=== PATIENT | female | born 1970 | race Caucasian/White ===

== ENCOUNTER 2021-12-08 11:03 | Outpatient (REF) | payer OTHER, SELFPAY ==
--- NOTE | ~2021-12-08 | MR_ITS ---
EXAMINATION: MR CERVICAL SPINE WITHOUT CONTRAST CLINICAL INFORMATION: 51-year-old with self-reported neck and left shoulder pain and bilateral hand shaking with increasing headaches. Tingling in bilateral hands, right more than left. Anesthesia of skin. COMPARISON: None. TECHNIQUE: MRI of the cervical spine was obtained using routine sequences without contrast. FINDINGS: Alignment: There is slight lordotic reversal centered at C5-C6. There is trace anterolisthesis at C4-C5 and trace retrolisthesis at C6-C7. Craniocervical Junction/C1-C2 Articulations: Intact and aligned. Visualized Intracranial Structures: Within normal limits. Vertebral Bodies: Normal height. Disc Spaces and Endplates: Mild disc space height loss, with anterior marginal spondylosis noted at C4-C5 with moderate disc space height loss at C5-C6 and C6-C7 with disc desiccation and spondylosis at these levels. Bone Marrow: Minor type I degenerative marrow signal changes seen along the endplates anteriorly at C4-C5. Otherwise bone marrow signal intensity appears unremarkable. C2-C3: No disc herniation or canal stenosis. No significant DJD or neuroforaminal stenosis. C3-C4: No disc herniation or canal stenosis. No significant DJD or neuroforaminal stenosis. C4-C5: Mild broad-based disc osteophyte complex noted, with slight flattening of the dural sac without cord impingement or canal stenosis. Minor uncinate process spurring noted on the left with slight left-sided neural foraminal narrowing. C5-C6: Broad-based disc osteophyte complex noted, with moderate flattening of the ventral dural sac without cord impingement or significant spinal canal stenosis. Bilateral uncovertebral spurring is noted, left more than right with mild right and moderate left-sided neural foraminal stenosis. C6-C7: Broad-based disc protrusion noted with mild flattening of the ventral dural sac and left paramedian disc osteophyte complex also noted without cord impingement or spinal canal stenosis. There is uncovertebral spurring predominately on the left with moderate left-sided neural foraminal stenosis. C7-T1: No disc herniation or canal stenosis. Mild facet arthropathy on the left noted. No neural foraminal stenosis. T1-T2: No disc herniation or canal stenosis. No facet arthrosis or neuroforaminal stenosis. Spinal Cord: The cervical and visualized upper thoracic spinal cord is normal in morphology, caliber and signal intensity throughout. Extracranial Soft Tissues: There is some mucosal thickening in the maxillary sinuses bilaterally. There is a 2.0 x 0.7 cm right suprahyoid IJ chain lymph node which appears mildly enlarged of indeterminate significance. Otherwise, the visualized extracranial head/neck soft tissues are unremarkable within the limitations of the study. MR/MR cervical spine wo con IMPRESSION: 1. Mild lordotic reversal centered at C5-C6 with trace anterolisthesis at C4-C5 with discogenic degenerative changes between C4-C5 and C6-C7 inclusive with associated mild degrees of spondylosis. Mild broad-based disc osteophyte complexes at C4-C5 and C5-C6, with broad-based disc protrusion and left paramedian disc osteophyte complex at C6-C7 without spinal cord impingement or significant spinal canal stenosis. 2. Multilevel DJD primarily involving the uncovertebral joints on the left with moderate left-sided neural foraminal stenosis at C5-C6 and C6-C7. 3. A single mildly prominent right suprahyoid IJ chain lymph node is noted. Follow-up as per clinical indications. 4. Bilateral maxillary sinus mucosal thickening.
== END 2021-12-08 11:04 | disposition home or self-care (01) ==
LOC: HO.MRI 11:03
PROVIDERS: Visit Provider Nurse Practitioner Family
DX: M54.2 Cervicalgia (principal); R20.0 Anesthesia of skin; R20.2 Paresthesia of skin
CPT/HCPCS: 72141

== ENCOUNTER 2022-03-26 15:27 | Outpatient (REF) | payer OTHER, SELFPAY ==
--- NOTE | ~2022-03-26 | MM_ITS ---
EXAMINATION: MM SCREENING DIGITAL BREAST TOMOSYNTHESIS, BILATERAL CLINICAL INFORMATION: Screening. Asymptomatic. Prior left breast cancer status post lumpectomy. Radiation completed September,. COMPARISON: Outside breast imaging from [facility]: mammography 05/14/2019, 05/09/2018, 06/11/2017, 01/16/2018 [id number], ultrasound right breast 03/16/2019. TECHNIQUE: Digital breast tomosynthesis is performed in both the craniocaudal and mediolateral oblique views along with computer-aided detection (CAD). Synthesized 2D images are generated from the tomosynthesis. Additional bilateral MLO views are provided. FINDINGS: There are scattered areas of fibroglandular density (ACR BI-RADS breast composition Category b). Parenchymal pattern is similar to prior outside studies. Left breast has post therapy changes with stable scarring and surgical clips posterior 12:00 position. There is a chronic 0.5 cm circumscribed nodule central left breast similar to 2018. The right breast has stable fibrocystic changes mid posterior upper outer quadrant with simple cysts noted on outside ultrasound. There is a biopsy clip marker central lower inner right breast. There is no developing density or interval significant mass or architectural abnormality or abnormal calcifications. No significant changes. MM/MM tomosynthesis screening BI IMPRESSION: -No mammographic evidence of malignancy. -No significant changes from prior outside studies. -Post therapy changes left breast. ASSESSMENT: BI-RADS 2: Benign RECOMMENDATION: Routine annual mammography screening. This patient's information was entered into a reminder system with a target due date for their next mammogram.
== END 2022-03-26 15:28 | disposition home or self-care (01) ==
LOC: HO.MAMMO 15:27
PROVIDERS: PCP Student in an Organized Health Care Education/Training Program; Visit Provider Family Medicine
DX: Z12.31 Encounter for screening mammogram for malignant neoplasm of breast (principal)
CPT/HCPCS: 77063; 77067

== ENCOUNTER 2022-08-03 14:00 | Outpatient (RCR) | payer OTHER, SELFPAY ==
[2022-05-26 10:13] VITALS: BP 118/69
== END 2022-09-07 14:10 | disposition home or self-care (01) ==
LOC: HO.PT 14:00
PROVIDERS: Visit Provider Nurse Practitioner Primary Care
DX: S13.4XXD Sprain of ligaments of cervical spine, subsequent encounter (principal)
CPT/HCPCS: 97012; 97110; 97112; 97140; 97162

== ENCOUNTER 2022-08-26 11:41 | Outpatient (REF) | payer OTHER, SELFPAY ==
[2022-08-26 11:46] LABS: MANUAL DIFF FLAG NO
[2022-08-26 12:48] LABS: Basophils Absolute Auto 0.1 X10*3/uL (0.0-0.2); Basophils Percent Auto 1.4 % (0-2); Eosinophils Absolute Auto 0.4 X10*3/uL (0.0-0.4); Eosinophils Percent Auto 7.2 % (0-4); Hematocrit 40.7 % (37.0-47.0); Hemoglobin 13.5 g/dl (12.0-16.0); Imm Gran Abs Auto 0.02 X10*3/uL (0.00-0.03); Imm Gran Pct Auto 0.3 % (0.0-0.4); Lymphocytes Absolute Auto 1.8 X10*3/uL (1.2-4.9); Lymphocytes Percent Auto 32.1 % (20-40); Mean Corpuscular HGB Conc 33.2 g/dl (31.0-35.0); Mean Corpuscular Hemoglobin 29.3 pg (27.0-33.0); Mean Corpuscular Volume 88.3 fL (80.0-98.0); Mean Platelet Volume 9.9 fL (9.4-12.3); Monocytes Absolute Auto 0.5 X10*3/uL (0.1-1.2); Monocytes Percent Auto 8.4 % (2-11); Neutrophils Absolute Auto 2.9 x10*3/uL (2.0-8.3); Neutrophils Percent Auto 50.6 % (45-73); Platelet Count 321 X10*3/uL (160-400); Red Blood Count 4.61 X10*6/uL (4.20-5.50); Red Cell Distribution Width 12.6 % (11.0-16.0); White Blood Count 5.7 X10*3/uL (4.8-10.8)
== END 2022-08-26 11:42 | disposition home or self-care (01) ==
LOC: HO.LAB 11:41
PROVIDERS: PCP Student in an Organized Health Care Education/Training Program; Visit Provider Student in an Organized Health Care Education/Training Program
DX: R63.5 Abnormal weight gain (principal)
CPT/HCPCS: 36415; 85025

== ENCOUNTER 2023-01-26 07:24 | Outpatient (AMB) | payer OTHER, SELFPAY ==
--- NOTE | 2023-01-26 07:35 | MHC.OFFVIS ---
Intake Vital Signs 01/26/23 07:37 Height 5 ft 6 in Weight 187 lb 6 oz BMI 30.2 BP 114/70 Blood Pressure Location Lt brachial Position Sitting Pulse 69 Intake Visit Reasons: Colonoscopy Screening Intake Note: Patient new consult for 1st pre colonoscopy screening. Patient denies any GI issues. Sustainability Communicator Required: No Accompanied by: Self / Same As Patient Allergies No Known Allergies Allergy (Verified 01/26/23 07:34) Medication List - Last Reconciled 01/26/23 by Chanell Motta PA-C albuterol sulfate 90 mcg/actuation (Ventolin HFA) 2 puffs inhalation Q4H PRN bupropion HCl 300 mg PO QAM ibuprofen (Advil) 200 mg PO Q6H PRN loratadine (Claritin) 10 mg PO DAILY lorazepam 0.5 mg PO BEDTIME PRN HPI HPI Comments History of Present Illness Details A 52 y/o female - family history multiple colon polyps last colon CDH- poilyps due surviellance- Appetite good -dysphagia- to solids- no issues with liquids- Bowels ok- Breast Ca 2018 Seasonal allergies only time she needs inhaler No nausea, vomiting, hematemesis, hematochezia fever chills PFSH Medical History (Updated 01/26/23 @ 10:45 by Chanell Motta PA-C) Cervical spondylosis Neck pain Sleep disorder Generalized headaches Snoring GERD (gastroesophageal reflux disease) Asthma Breast cancer Depression Carpal tunnel syndrome on both sides Carpal boss of right wrist Carpal boss of left wrist Ovary absent Surgical History History of lumpectomy of left breast Family History Father Cancer Social History Household Members: Spouse and Children Housing: House Alcohol intake: unknown Patient Tobacco Use Status: Never used Tobacco Review of Systems Const All systems reviewed & are unremarkable except as noted in HPI and below ENT Reports dysphagia Card Denies chest pain and Denies dyspnea Resp Denies dyspnea GI Denies abdominal pain and Reports dysphagia Physical Exam Vital Signs: Last Vital Signs Pulse 69 01/26/23 07:37 BP 114/70 01/26/23 07:37 BMI result Body Mass Index 30.2 Const General: cooperative, healthy appearing, comfortable and no acute distress Orientation/consciousness: patient oriented x3 Limitations: no limitations Eyes Sclerae: sclerae normal Resp Effort & Inspection: normal respiratory effort and able to speak in complete sentences Auscultation: clear to auscultation bilaterally, no rales, no rhonchi and no wheezes Cardio Rhythm: regular rhythm Heart sounds: S1 normal heart sound present and S2 normal heart sound present GI Palpation (GI): Soft to palpation and nontender Auscultation: normal bowel sounds Skin General skin exam: no rashes or lesions noted Neuro General: patient oriented x3 Extrem General: Yes full ROM Psych Appearance: grossly normal and well kempt Mental Status: mental status grossly normal Speech and movement: Normal speech and movement present and Clear speech present Affect: normal affect Attitude: cooperative Thought process: Normal thought process present Thought content: Normal thought content present Insight: Good insight present (Psych) Judgement: Good judgement present (Psych) Assessment & Plan Assessment & Plan (1) History of adenomatous polyp of colon: Comment: Personal history colon polyps, mother and father history colon polyps Code(s): Z86.010 - Personal history of colonic polyps Plan: Polyp surveillance colonoscopy (2) Dysphagia: Comment: r/o stricture, esophagitis, other endoscopic causes to account for symptoms Code(s): R13.10 - Dysphagia, unspecified Plan: EGD Chew well Eat slowly Will get upper GI series in the interim Plan EGD/ colon UGI series - pt to call for results Orders: Orders FL upper GI series Today R13.10 - Dysphagia, unspecified EGD/[place] Combo - GI Use Only Today R13.10 - Dysphagia, unspecified, Z86.010 - Personal history of colonic polyps Medications: New bisacodyl (Dulcolax (bisacodyl)) Day before procedure, prep day Take 4 tablets by mouth upon awakening followed by large glass of water 20 mg (4 x 5 mg) PO ONCE 1 day 4 tabs 0RF colonoscopy prep Z12.11 - Encounter for screening for malignant neoplasm of colon polyethylene glycol 3350 (Miralax) Take as directed by mouth the day before your procedure. 238 grams PO ONCE 1 day PRN 238 grams 0RF laxative effect Patient Instructions: UGI seres-she will call for results EGD /colon MG prep-literature given Eat slowly Chew food well Call with any questions or concerns Coding Level of Care Code New Pt Level 3 (19985) Diagnoses History of adenomatous polyp of colon Z86.010 Dysphagia R13.10 Time Spent (min) 30
[2023-01-26 07:37] VITALS: BP 114/70; PULSE 69; BMI 30.2
== END 2023-01-26 09:00 | disposition home or self-care (01) ==
PROVIDERS: PCP Student in an Organized Health Care Education/Training Program; Visit Provider Physician Assistant
DX: Z86.010 Personal history of colon polyps (principal); Z12.11 Encounter for screening for malignant neoplasm of colon; R13.10 Dysphagia, unspecified
CPT/HCPCS: S0285

== ENCOUNTER → 2023-01-26 07:24 | Outpatient (BNVA) | payer OTHER, SELFPAY | PROVIDERS: PCP Student in an Organized Health Care Education/Training Program; Visit Provider Physician Assistant ==

== ENCOUNTER 2023-04-14 08:20 | Outpatient (REF) | payer OTHER, SELFPAY ==
--- NOTE | ~2023-04-14 | FL_ITS ---
EXAMINATION: FL BARIUM SWALLOW CLINICAL INFORMATION: Dysphagia COMPARISON: None TECHNIQUE: Fluoroscopic air contrast upper GI examination was performed utilizing standard techniques with thin and thick barium and effervescent granules. Numerous spot images were obtained. FINDINGS: Surgical clips are present in the left chest, consistent with prior history of lumpectomy. Lateral cine images of the oropharynx and hypopharynx demonstrate normal swallow mechanism with normal epiglottic inversion and soft palate elevation. Trace laryngeal penetration is seen with the thick barium. No tracheal penetration, glottic or subglottic aspiration identified. Tiny amount of nasopharyngeal reflux noted. Hypopharyngeal structures appear normal without evidence of mass or diverticulum. There was no significant cricopharyngeal achalasia. Dual and single contrast images of the esophagus demonstrate normal caliber, contour, and mucosal pattern. No evidence of stricture, mass, or ulcerations identified. Primary esophageal peristalsis was normal. There is some mild disorganized tertiary contractions noted in the mid and distal esophagus There is a small to moderate moderate-sized type I hiatus hernia. No significant gastroesophageal reflux was seen during the course of the examination and on reflux views. FLUOROSCOPY TIME: 3 minutes 31 seconds Number of Spot Images: 8 Number of Cine: 5 DOSE AREA PRODUCT: 1310 uGy-m2 (microgray-meter squared) FL/FL barium swallow IMPRESSION: 1. Trace laryngeal penetration with thick barium 2. Mild esophageal dysmotility 3. Small to moderate sized type I hiatus hernia. This procedure was performed by Cory Gallardo PA-C, and supervised by Dr. Dale
== END 2023-04-14 08:21 | disposition home or self-care (01) ==
LOC: HO.XRAY 08:20
PROVIDERS: PCP Student in an Organized Health Care Education/Training Program; Visit Provider Physician Assistant
DX: R13.10 Dysphagia, unspecified (principal)
CPT/HCPCS: 74220

== ENCOUNTER → 2023-04-14 08:22 | Outpatient (BNV) | payer OTHER, SELFPAY | PROVIDERS: PCP Student in an Organized Health Care Education/Training Program; Visit Provider Radiology Diagnostic Radiology | DX: R13.10 Dysphagia, unspecified (principal) | CPT/HCPCS: 74221 ==

== ENCOUNTER 2023-05-20 15:18 | Outpatient (REF) | payer OTHER, SELFPAY ==
--- NOTE | ~2023-05-20 | US_ITS ---
EXAMINATION: US EXTRACRANIAL CAROTID DUPLEX, BILATERAL CLINICAL INFORMATION: Stenosis COMPARISON: None available. TECHNIQUE: Real-time ultrasound and Doppler techniques (integrating B-mode 2-D vascular images, Doppler spectral analysis and color-flow Doppler imaging) were utilized to interrogate the extracranial carotid arteries, the vertebral arteries and proximal subclavian arteries bilaterally. The degree of stenosis is determined by criteria similar to NASCET. FINDINGS: Right Side: 1. There is no atherosclerotic plaque seen in the bifurcation/proximal ICA region. 2. The common carotid artery PSV proximally is 95 cm/s and distally 107 cm/s. 3. The proximal internal carotid artery velocities are 94 cm/s systolic and 29 cm/s diastolic. 4. The proximal external carotid artery PSV is 112 cm/s. 5. The vertebral artery shows antegrade flow. 6. The subclavian artery waveforms are normal. Left Side: 1. There is no atherosclerotic plaque seen in the bifurcation/proximal ICA region. 2. The common carotid artery PSV proximally is 139 cm/s and distally 109 cm/s. 3. The proximal internal carotid artery velocities are 76 cm/s systolic and 33 cm/s diastolic. 4. The proximal external carotid artery PSV is 95 cm/s. 5. The vertebral artery shows antegrade flow. 6. The subclavian artery waveforms are normal. US/US carotid duplex BI IMPRESSION: 1. RIGHT: Normal right internal carotid artery without atherosclerotic plaque or hemodynamically significant stenosis. 2. LEFT: Normal left internal carotid artery without atherosclerotic plaque or hemodynamically significant stenosis.
== END 2023-05-20 15:19 | disposition home or self-care (01) ==
LOC: HO.US 15:18
PROVIDERS: PCP Student in an Organized Health Care Education/Training Program; Visit Provider Student in an Organized Health Care Education/Training Program
DX: I65.23 Occlusion and stenosis of bilateral carotid arteries (principal)
CPT/HCPCS: 93880

== ENCOUNTER 2023-06-09 07:38 | Outpatient (REF) | payer OTHER, SELFPAY ==
--- NOTE | ~2023-06-09 | MM_ITS ---
EXAMINATION: MM SCREENING DIGITAL BREAST TOMOSYNTHESIS, BILATERAL CLINICAL INFORMATION: Screening. Asymptomatic. Left lumpectomy 12:00 axis for breast CA in 2018. Radiation completed September,. COMPARISON: Mammography: 03/26/2022, Outside breast imaging from [facility]: mammography 05/14/2019, 05/09/2018, 06/11/2017, 01/16/2018, 05/05/2017, ultrasound right breast 03/16/2019. TECHNIQUE: Digital breast tomosynthesis is performed in both the craniocaudal and mediolateral oblique views along with computer-aided detection (CAD). Synthesized 2D images are generated from the tomosynthesis. FINDINGS: The breasts are heterogeneously dense, which may obscure small masses (ACR BI-RADS breast composition Category c). There are unchanged post therapy changes in the left breast 12:00 axis with posterior surgical clips and scarring, and mild trabecular prominence. There is a similar 0.5 cm circumscribed nodule central left breast similar to 2018. The right breast is stable fibrocystic changes with a biopsy clip marker within a density in the lower inner right breast. In the upper outer right breast, middle one third, there is a circumscribed mass present, shown to represent a cyst. This was seen on prior ultrasound. No developing density, developing architectural abnormality or abnormal suspicious calcifications identified. No skin or axillary abnormalities. MM/MM tomosynthesis screening BI IMPRESSION: -No mammographic evidence of malignancy. -Stable post therapy changes left breast. ASSESSMENT: BI-RADS BI-RADS 2 - Benign Findings RECOMMENDATION: Routine annual mammography screening. 1 year F/U This examination should not preclude the clinical evaluation of a suspicious palpable abnormality. This patient's information was entered into a reminder system with a target due date for their next mammogram.
== END 2023-06-09 07:39 | disposition home or self-care (01) ==
LOC: HO.MAMMO 07:38
PROVIDERS: PCP Student in an Organized Health Care Education/Training Program; Visit Provider Student in an Organized Health Care Education/Training Program
DX: Z12.31 Encounter for screening mammogram for malignant neoplasm of breast (principal)
CPT/HCPCS: 77063; 77067

== ENCOUNTER → 2023-06-09 07:45 | Outpatient (BNV) | payer OTHER, SELFPAY | PROVIDERS: PCP Student in an Organized Health Care Education/Training Program; Visit Provider Radiology Diagnostic Radiology | DX: Z12.31 Encounter for screening mammogram for malignant neoplasm of breast (principal) | CPT/HCPCS: 77063; 77067 ==

== ENCOUNTER 2023-06-20 09:27 | Day surgery (SDC) | payer OTHER, SELFPAY ==
--- NOTE | 2023-06-17 10:42 | HO.ANESPROP2 ---
HPI - Anesthesia Eval Consult details Narrative: 52yo F for Upper Endoscopy and Colonoscopy ON LICENSE OF [facility] Active Problems Active Problems: All Active Problems (Updated 01/26/23 @ 10:45 by Chanell Motta PA-C) History of adenomatous polyp of colon (Acute) Dysphagia (Acute) Neck pain (Acute) Cervical spondylosis (Acute) Tremors of nervous system (Acute) Sleep talking (Acute) Neck pain (Acute) Numbness and tingling in right hand (Acute) Sleep disorder (Acute) Generalized headaches (Acute) Snoring (Acute) GERD (gastroesophageal reflux disease) (Acute) Depression (Acute) Past Medical History Medical History (Updated 01/26/23 @ 10:45 by Chanell Motta PA-C) Cervical spondylosis Neck pain Sleep disorder Generalized headaches Snoring GERD (gastroesophageal reflux disease) Asthma Breast cancer Depression Carpal tunnel syndrome on both sides Carpal boss of right wrist Carpal boss of left wrist Ovary absent Family History Family History Father Cancer Surgical History Surgical History History of lumpectomy of left breast Social History Social History Household Members: Spouse and Children Housing: House Alcohol intake: unknown Patient Tobacco Use Status: Never used Tobacco Meds Allergies Allergy/AdvReac Type Severity Reaction Status Date / Time No Known Allergies Allergy Verified 01/26/23 07:34 Home Medications Medication Instructions Recorded Confirmed Last Taken Type bupropion HCl 300 mg 24 hr tablet, 300 mg PO QAM 11/06/21 01/21/22 Unknown History extended release ibuprofen 200 mg tablet (Advil) 200 mg PO Q6H PRN 11/06/21 01/21/22 Unknown History loratadine 10 mg tablet (Claritin) 10 mg PO DAILY 11/06/21 01/21/22 Unknown History lorazepam 0.5 mg tablet 0.5 mg PO BEDTIME PRN 11/06/21 01/21/22 Unknown History albuterol sulfate 90 mcg/actuation 2 puff inhalation Q4H PRN wheezing 01/26/23 Unknown History aerosol inhaler (Ventolin HFA) Assessment and Plan Assessment Anesthesia Assessment: Chart Reviewed
--- NOTE | 2023-06-20 09:38 | MHC.SHP ---
Pre-Procedural Eval Section A - 24 Hr Update-Section A only Date of Service: 06/20/23 The patient is an INPATIENT: No The patient has been examined within 24 hours of the surgical procedure. The History & Physical has been completed within 30 days and I have reviewed it.: No Section B - Complete if H&P > 30 days Chief Complaint: Surveillance of colon polyps, dysphagia Relevant Social History: None Present Medications: see Short Stay Collaborative assessment Medical History: Significant History (Cervical spondylosis Neck pain Sleep disorder Generalized headaches Snoring GERD (gastroesophageal reflux disease) Asthma Breast cancer Depression Carpal tunnel syndrome on both sides Carpal boss of right wrist Carpal boss of left wrist Ovary absent) History of Previous Operations: Relevant previous surgery/procedure and date(s) (History of lumpectomy of left breast, history of colonoscopy) Allergies: Allergies Allergy/AdvReac Type Severity Reaction Status Date / Time No Known Allergies Allergy Verified 01/26/23 07:34 Review of Systems Sugical H&P ROS: Negative: Constitution, Cardiovascular, Respiratory and Gastrointestinal Exam Surgical H&P Exam: Normal: Heart, Normal: Lungs, Normal: Extremities and Normal: Abdomen Plan Diagnosis/Plan: Unchanged I have reviewed the history and physical and performed a pertinent physical examination on my patient. No changes have occurred unless specified. Time Spent With Patient Time: Total time managing care of this patient today ____ minutes.
[2023-06-20 09:48] VITALS: BMI 30.2
[2023-06-20 09:52] VITALS: BMI 30.2
--- NOTE | 2023-06-20 09:53 | P.CONAN_ITS ---
[facility] Active Problems Active Problems: All Active Problems (Updated 01/26/23 @ 10:45 by Chanell Motta PA-C) History of adenomatous polyp of colon (Acute) Dysphagia (Acute) Neck pain (Acute) Cervical spondylosis (Acute) Tremors of nervous system (Acute) Sleep talking (Acute) Neck pain (Acute) Numbness and tingling in right hand (Acute) Sleep disorder (Acute) Generalized headaches (Acute) Snoring (Acute) GERD (gastroesophageal reflux disease) (Acute) Depression (Acute) Past Medical History Medical History Cervical spondylosis Neck pain Sleep disorder Generalized headaches Snoring GERD (gastroesophageal reflux disease) Asthma Breast cancer Depression Carpal tunnel syndrome on both sides Carpal boss of right wrist Carpal boss of left wrist Ovary absent Functional capacity: independent ambulation Patient : No Family History Family History Father Cancer Family history of problems with anesthesia: No Surgical History Surgical History History of lumpectomy of left breast History of Problems with Anesthesia: No Social History Social History Household Members: Spouse and Children Housing: House Alcohol intake: unknown Patient Tobacco Use Status: Never used Tobacco Use of substances other than those prescribed or required for medical reasons: No Are you DNR?: No Advance Directives: No Advance Directives Information Provided: Yes Patient : No (Menopause) Meds Allergies Allergy/AdvReac Type Severity Reaction Status Date / Time No Known Allergies Allergy Verified 01/26/23 07:34 Active Medications: Current Medications Albuterol Sulfate (Albuterol Sulfate (0.083%) 2.5 Mg/3 Ml Vial.Neb) 2.5 mg I NHALE ONCE PRN PRN Reason: Shortness of Breath/Wheezing Lactated Ringer's (Lr) 1,000 mls @ 100 mls/hr IVCONT .Q10H [facility] Home Medications Medication Instructions Recorded Confirmed Last Taken Type bupropion HCl 300 mg 24 hr tablet, 300 mg PO QAM 11/06/21 01/21/22 Unknown History extended release ibuprofen 200 mg tablet (Advil) 200 mg PO Q6H PRN 11/06/21 01/21/22 Unknown History loratadine 10 mg tablet (Claritin) 10 mg PO DAILY 11/06/21 01/21/22 Unknown History lorazepam 0.5 mg tablet 0.5 mg PO BEDTIME PRN 11/06/21 01/21/22 Unknown History albuterol sulfate 90 mcg/actuation 2 puff inhalation Q4H PRN wheezing 01/26/23 Unknown History aerosol inhaler (Ventolin HFA) Exam Height,Weight and Vital Signs: Height 5 ft 6 in Weight 84.878 kg Airway Mallampati Class: II TM Dist: >3cm Neck ROM: Full Heart: RRR Lungs: CTA Assessment and Plan Assessment Anesthesia Assessment: Anesthesia Plan Discussed Final Anesthetic Review Family History of Problems with Anesthesia: No History of Problems with Anesthesia: No ASA Class: II Final Preanesthetic Review: Meds/Allgs Chart Reviewed, Consent Obtained/Reviewed and Anes Risks/Benef Reviewed Patient Risk: Low Procedure Risk: Low Anesthetic Plan Anesthetic Plan: MAC: Disposition: Standard PACU
[2023-06-20 09:59] VITALS: BP 130/80; PULSE 79; RESP 16; TEMP 36.4; O2SAT 98
[2023-06-20] MEDS: Lactated Ringers 1,000 ML 100 ML IVCONT (10:10)
--- NOTE | 2023-06-20 10:34 | W.PM.OPN ---
Operative Note Operative Note Date of Service: 06/20/23 Narrative: FLEXIBLE TRANSORAL UPPER GASTROINTESTINAL ENDOSCOPY WITH BIOPSIES AND ESOPHAGEAL BALLOON DILATION AND COLONOSCOPY TILL CECUM WITH BIOPSIES AND SNARE POLYPECTOMY Pre-op diagnosis: Surveillance for colon polyps, GERD, dysphagia (x 1 year) Post-op diagnosis: Hiatal hernia, Esophagitis, Schatzki's ring, Gastritis, Gastric polyps, Colon Polyps, Diverticulosis, hemorrhoids ?E: TRANSVERSE COLON POLYP ?F: ASCENDING COLON POLYP BXS ?G: SIGMOID COLON POLYPS X 2. Endoscopist:? Trini Marcos MD Anesthesia:?MAC UPPER ENDOSCOPY Consent: Indications for the procedure and potential complications of bleeding, perforation, reaction to medications and missed diagnosis were discussed with the patient and informed consent was obtained. Instrument: Olympus GIF H 190 mid size upper endoscope Monitoring: Vital signs and clinical assessment, continuous EKG monitoring, Pulse oximetry, Carbon Dioxide monitoring and blood pressure monitoring were done throughout the procedure. Procedure: The patient was placed in the left lateral decubitis position and pre-procedure medications were administered and a bite block was placed. The endoscope was inserted into the mouth and advanced under direct vision to the third part of duodenum. A careful inspection was made as the upper endoscope was withdrawn including a retroflexed examination of the proximal stomach; Findings and interventions are described below. Findings: Larynx: Normal Esophagus: GE junction at 34 cms, small hiatal hernia 34 to 36 cms. A partially obstructing Schatzki's ring and edematous folds at the GE junction with a 1 cms erosion. Esophageal balloon dilation of Schatzki's ring was performed with a 20 mm (60 F) CRE balloon x 60 seconds. Biopsies were obtained from the proximal esophagus and GE junction. Stomach: Multiple 4-6 mm benign appearing polyps in the gastric body and fundus - biopsied. Mild gastric antral erythema - biopsies were obtained. Grade 3 flap valve on retroflexed examination of the cardia. Duodenum: Normal bulb and descending duodenum Intervention: Biopsies and esophageal balloon dilation as noted above COLONOSCOPY PROCEDURE NOTE Instrument: Olympus PCF H 190 L variable stiffness pediatric colonoscope Monitoring: Vital signs and clinical assessment, intermittent blood pressure monitoring, continuous EKG monitoring, Pulse oximetry and Carbon Dioxide monitoring were done throughout the procedure. Please see anesthesia flowsheet. Colon withdrawl time was 17 minutes. Procedure: The patient was placed in the left lateral decubitis position and pre-procedure medications were administered. After a digital rectal examination of the ano-rectum, the video colonoscope was inserted into the rectum and advanced through the colon to the cecum. The colonoscope was slowly withdrawn in a retrograde panoramic fashion and the colon mucosa was carefully examined including a retroflexed view of the rectum. Findings and interventions are described below. Procedure Difficulty: without difficulty Findings: Terminal Ileum: Not evaluated Cecum: Normal Ascending Colon: A 4-5 mm diminutive appearing polyp - removed with a cold biopsy Transverse Colon: A 7-8 mm sessile polyp - removed with a cold snare Descending Colon: Moderate diverticulosis Sigmoid Colon: A 7- 8 mm sessile polyp - removed with a cold snare. A 3-4 mm sessile polyp - removed with a cold biopsy. Moderate diverticulosis Rectum: Normal Ano-rectum: Moderate internal hemorrhoids Colon preparation: Good after copious irrigation. [place] Bowel Preparation Scale Right colon; 2 Transverse colon: 2 Left colon; 2 (0 = Unprepared colon segment with mucosa not seen due to solid stool that cannot be cleared. 1 = Portion of mucosa of the colon segment seen, but other areas of the colon segment not well seen due to staining, residual stool and/or opaque liquid. 2 = Minor amount of residual staining, small fragments of stool and/or opaque liquid, but mucosa of colon segment seen well. 3 = Entire mucosa of colon segment seen well with no residual staining, small fragments of stool or opaque liquid) Impression and Post Procedure Diagnosis: Endoscopy Findings: ESOPHAGUS: Small hiatal hernia 34 to 36 cms. A partially obstructing Schatzki's ring and edematous folds at the GE junction with a 1 cms erosion. Esophageal balloon dilation of Schatzki's ring was performed with a 20 mm (60 F) CRE balloon x 60 seconds. Biopsies were obtained from the proximal esophagus and GE junction. STOMACH: Gastritis and multiple gastric polyps Colonoscopy Findings: Four small polyps were removed Moderate diverticulosis seen in the left colon Plan: Pt will be scheduled for a FU appointment with Chanell Motta. Repeat EGD with dilation prn for recurrent dysphagia Repeat Colonoscopy in 3-5 years if polyps are adenomatous and 10 year if polyps are hyperplastic. Above findings were reviewed with the patient and relevant handouts were given and the discharge area. BIOPSIES SHOWED: A. Stomach, antrum, biopsy: Antral-type mucosa with mild chronic inactive inflammation; no Helicobacter organisms seen. B. Stomach, polyps (2): Fundic gland polyps with background mild chronic inactive inflammation; no Helicobacter organisms seen. C. GE junction, biopsy: - Cardiac-type mucosa with chronic active erosive inflammation; no intestinal metaplasia seen. - Erosive esophagitis (maximum eosinophil count 4 per high powered field). D. Esophagus, proximal, biopsy: Squamous epithelium within normal limits; no inflammation seen. E. Colon, transverse, polypectomy: Fragments of tubular adenoma; negative for high-grade dysplasia or carcinoma. F. Colon, ascending polyp, biopsy: Clinically polypoid colonic mucosa within normal limits. G. Colon, sigmoid, polypectomies (2): - Tubular adenoma; negative for high-grade dysplasia or carcinoma. - Colonic mucosa with small lymphoid aggregate. Letter sent advising repeat Colon in 5 years
[2023-06-20 11:33] VITALS: BP 110/56; PULSE 75; RESP 16; TEMP 36.1; O2SAT 100
--- NOTE | 2023-06-20 11:33 | HO.POSTANES ---
Post Anesthesia Evaluation Post Anesthesia Evaluation Date of Service: 06/20/23 Vital Signs: Vital Signs Temp Pulse Resp BP Pulse Ox O2 Del Method 06/20/23 09:59 97.5 F 79 16 130/80 98 Room Air Anesthesia: Monitored Mental Status: Awake Pain Control: Satisfactory Nausea/Vomiting: None Hydration: Adequate Anesthesia-Related Issues: No Anes. Related Issues
[2023-06-20 11:48] VITALS: BP 134/67; PULSE 65; RESP 16; TEMP 36.1; O2SAT 99
--- NOTE | 2023-06-20 12:29 | HO.POSTANES ---
Post Anesthesia Evaluation Post Anesthesia Evaluation Date of Service: 06/20/23 Vital Signs: Vital Signs Temp Pulse Resp BP Pulse Ox O2 Del Method 06/20/23 11:48 97 F 65 16 134/67 99 Room Air 06/20/23 11:33 97 F 75 16 110/56 L 100 Room Air 06/20/23 09:59 97.5 F 79 16 130/80 98 Room Air Anesthesia: Monitored Mental Status: Awake Pain Control: Satisfactory Nausea/Vomiting: None Hydration: Adequate Anesthesia-Related Issues: No Anes. Related Issues
== END 2023-06-20 13:16 | disposition home or self-care (01) ==
PROVIDERS: PCP Student in an Organized Health Care Education/Training Program; Visit Provider Internal Medicine Gastroenterology
PROC: (CPT 45385; principal; 2023-06-20 10:50)
DX: Z12.11 Encounter for screening for malignant neoplasm of colon (principal); Z86.010 Personal history of colon polyps; Z83.719 Family history of colon polyps, unspecified; D12.3 Benign neoplasm of transverse colon; D12.5 Benign neoplasm of sigmoid colon; K63.5 Polyp of colon; K57.30 Diverticulosis of large intestine without perforation or abscess without bleeding; K64.8 Other hemorrhoids; R13.10 Dysphagia, unspecified; K22.2 Esophageal obstruction; K20.80 Other esophagitis without bleeding; K29.50 Unspecified chronic gastritis without bleeding; K31.7 Polyp of stomach and duodenum; K44.9 Diaphragmatic hernia without obstruction or gangrene; K21.9 Gastro-esophageal reflux disease without esophagitis; J45.909 Unspecified asthma, uncomplicated; Z85.3 Personal history of malignant neoplasm of breast; Z79.1 Long term (current) use of non-steroidal anti-inflammatories (NSAID); Z79.899 Other long term (current) drug therapy; Z98.890 Other specified postprocedural states
CPT/HCPCS: 45385; 45380; 43249; 43239; 88305; 88313; 88342; C1726; J2704

== ENCOUNTER → 2023-06-20 09:27 | Outpatient (BNV) | payer OTHER, SELFPAY | PROVIDERS: PCP Student in an Organized Health Care Education/Training Program; Visit Provider Internal Medicine Gastroenterology | DX: Z12.11 Encounter for screening for malignant neoplasm of colon (principal); Z86.010 Personal history of colon polyps; D12.5 Benign neoplasm of sigmoid colon; K63.5 Polyp of colon; K57.30 Diverticulosis of large intestine without perforation or abscess without bleeding; K64.8 Other hemorrhoids; K21.00 Gastro-esophageal reflux disease with esophagitis, without bleeding; K31.7 Polyp of stomach and duodenum; K29.70 Gastritis, unspecified, without bleeding; K22.2 Esophageal obstruction | CPT/HCPCS: 43239; 43249; 45380; 45385 ==

== ENCOUNTER 2023-07-09 16:02 | Emergency (ER) | payer OTHER, SELFPAY ==
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
[2023-07-09 16:17] VITALS: BP 139/96; BP 163/75; PULSE 80; PULSE 83; RESP 16; TEMP 36.7; O2SAT 100; O2SAT 99; BMI 33.3
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
[2023-07-09] MEDS: Ketorolac Tromethamine 15 MG/ML VIAL 10 MG IVPUSH (17:25)
[2023-07-09] MEDS: ondansetron HCL 4 MG/2 ML VIAL IVPUSH (17:51)
[2023-07-09 18:11] VITALS: BP 130/74; PULSE 70; RESP 16; TEMP 36.7; O2SAT 98
[2023-07-09 19:25] VITALS: RESP 18
[2023-07-09] MEDS: Morphine Sulfate 4 MG/ML CARTRIDGE IVPUSH (19:25)
[2023-07-09] MEDS: Metoclopramide HCl 10 MG/2 ML VIAL IVPUSH (19:25)
[2023-07-09 19:34] VITALS: BP 136/81; PULSE 69; RESP 18; TEMP 36.7; O2SAT 99
[2023-07-09 20:32] VITALS: BP 116/67; PULSE 66; RESP 16; TEMP 36.6; O2SAT 97
== END 2023-07-09 20:32 | disposition home or self-care (01) ==
PROVIDERS: Emergency Provider Emergency Medicine
DX: S13.4XXA Sprain of ligaments of cervical spine, initial encounter (principal); S20.213A Contusion of bilateral front wall of thorax, initial encounter; M54.50 Low back pain, unspecified; M25.531 Pain in right wrist; R51.9 Headache, unspecified; M54.2 Cervicalgia; R07.89 Other chest pain; V43.52XA Car driver injured in collision with other type car in traffic accident, initial encounter; Y93.9 Activity, unspecified; Y92.410 Unspecified street and highway as the place of occurrence of the external cause; Y99.8 Other external cause status; Z79.899 Other long term (current) drug therapy
CPT/HCPCS: 71046; 72100; 72125; 73110; 96374; 96375; 99284; J1885; J2270; J2405; J2765

== ENCOUNTER 2023-07-19 12:28 | Outpatient (AMB) | payer OTHER, SELFPAY ==
--- NOTE | 2023-07-19 12:30 | MHC.OFFVIS ---
Vital Signs 07/19/23 12:32 Height 5 ft 6 in Weight 186 lb BMI 30.0 BP 118/69 Blood Pressure Location Lt brachial Position Sitting Pulse 75 Intake Visit Reasons: colo results Intake Note: Patient follow up for EGD/Colonoscopy results. Patient cc: acid reflex with burning sensation, denies any other GI issues for today. 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 Marcos-she complains of acid reflux seems to be a bit worse she is taking Tums does not seem to be beneficial She does not feel her symptoms have improved Reviewed procedure report, pathology recommendations Opportunity for questions answered to her satisfaction No nausea, vomiting hematemesis, hematochezia fever chills PFSH Medical History (Updated 07/19/23 @ 13:16 by Chanell Motta PA-C) Cervical spondylosis Neck pain Sleep disorder Generalized headaches Snoring GERD (gastroesophageal reflux disease) Asthma Breast cancer Depression Carpal tunnel syndrome on both sides Carpal boss of right wrist Carpal boss of left wrist Ovary absent Surgical History Hx of esophagogastroduodenoscopy Hx of colonoscopy History of lumpectomy of left breast Family History Father Cancer Social History Household Members: Spouse and Children Housing: House Alcohol intake: unknown Patient Tobacco Use Status: Never used Tobacco Physical Exam Vital Signs: Last Vital Signs Pulse 75 07/19/23 12:32 BP 118/69 07/19/23 12:32 BMI result Body Mass Index 30.0 Const General: cooperative, healthy appearing, comfortable and no acute distress Orientation/consciousness: patient oriented x3 Limitations: no limitations Resp Effort & Inspection: normal respiratory effort and able to speak in complete sentences Skin General skin exam: no rashes or lesions noted Neuro General: patient oriented x3 Extrem General: Yes full ROM Psych Appearance: grossly normal and well kempt Mental Status: mental status grossly normal Speech and movement: Normal speech and movement present and Clear speech present Affect: normal affect Attitude: cooperative Thought process: Normal thought process present Thought content: Normal thought content present Insight: Good insight present (Psych) Judgement: Good judgement present (Psych) Results Reviewed Results Reviewed: Impression and Post Procedure Diagnosis: Endoscopy Findings: ESOPHAGUS: Small hiatal hernia 34 to 36 cms. A partially obstructing Schatzki's ring and edematous folds at the GE junction with a 1 cms erosion. Esophageal balloon dilation of Schatzki's ring was performed with a 20 mm (60 F) CRE balloon x 60 seconds. Biopsies were obtained from the proximal esophagus and GE junction. STOMACH: Gastritis and multiple gastric polyps Colonoscopy Findings: Four small polyps were removed Moderate diverticulosis seen in the left colon Plan: Pt will be scheduled for a FU appointment with Chanell Motta. Repeat EGD with dilation prn for recurrent dysphagia Repeat Colonoscopy in 3-5 years if polyps are adenomatous and 10 year if polyps are hyperplastic. Above findings were reviewed with the patient and relevant handouts were given and the discharge area. BIOPSIES SHOWED: A. Stomach, antrum, biopsy: Antral-type mucosa with mild chronic inactive inflammation; no Helicobacter organisms seen. B. Stomach, polyps (2): Fundic gland polyps with background mild chronic inactive inflammation; no Helicobacter organisms seen. C. GE junction, biopsy: - Cardiac-type mucosa with chronic active erosive inflammation; no intestinal metaplasia seen. - Erosive esophagitis (maximum eosinophil count 4 per high powered field). D. Esophagus, proximal, biopsy: Squamous epithelium within normal limits; no inflammation seen. E. Colon, transverse, polypectomy: Fragments of tubular adenoma; negative for high-grade dysplasia or carcinoma. F. Colon, ascending polyp, biopsy: Clinically polypoid colonic mucosa within normal limits. G. Colon, sigmoid, polypectomies (2): - Tubular adenoma; negative for high-grade dysplasia or carcinoma. - Colonic mucosa with small lymphoid aggregate. Letter sent advising repeat Colon in 5 years Assessment & Plan Assessment & Plan (1) Schatzki's ring: Comment: Balloon dilation Code(s): K22.2 - Esophageal obstruction Category: Medical Plan: If Symptoms persist-repeat EGD (2) Tubular adenoma of colon: Code(s): D12.6 - Benign neoplasm of colon, unspecified Category: Medical Plan: 5 year recall colonoscopy (3) Diverticulosis of colon: Comment: Maintain high-fiber Reinforced ER protocol Code(s): K57.30 - Diverticulosis of large intestine without perforation or abscess without bleeding Category: Medical Plan: ER protocol reinforce Maintain high-fiber diet Foods to avoid (4) Hemorrhoids: Code(s): K64.9 - Unspecified hemorrhoids Category: Medical Plan: HFD avoid strain (5) GERD (gastroesophageal reflux disease): Comment: sx- worse- needs ppi Code(s): K21.9 - Gastro-esophageal reflux disease without esophagitis Category: Medical Plan: pantoprazole 40 mg QD (6) Erosive esophagitis: Code(s): K22.10 - Ulcer of esophagus without bleeding Category: Medical Plan: Pantoprazole 40 mg- Plan pantoprazole 40 mg- if sx persist - repeat EGD Colonoscopy 5 years Medications: New pantoprazole 40 mg PO DAILY 30 days 30 tabs 11RF Patient Instructions: PT to call with progress- 6-8 wks, after beginning pantoprazole to reassess If symptoms persist repeat EGD possible dilation Reflux precautions reviewed Repeat asymptomatic colonoscopy 5 Diverticulosis/diverticulitis ER protocol Maintain high-fiber diet Foods to avoid, nuts, seeds, corn ET Avoid straining with hemorrhoid Encouraged to call with questions or concerns Patient to call 6-8 weeks with progress for acid reflux.-she should continue PPI daily Coding Level of Care Code Est Pt Level 3 (79032) Diagnoses Schatzki's ring K22.2 Tubular adenoma of colon D12.6 Diverticulosis of colon K57.30 Hemorrhoids K64.9 GERD (gastroesophageal reflux disease) K21.9 Erosive esophagitis K22.10 Time Spent (min) 30
[2023-07-19 12:32] VITALS: BP 118/69; PULSE 75
== END 2023-07-19 15:43 | disposition home or self-care (01) ==
PROVIDERS: PCP Student in an Organized Health Care Education/Training Program; Visit Provider Physician Assistant
DX: K22.2 Esophageal obstruction (principal); D12.6 Benign neoplasm of colon, unspecified; K57.30 Diverticulosis of large intestine without perforation or abscess without bleeding; K64.9 Unspecified hemorrhoids; K21.9 Gastro-esophageal reflux disease without esophagitis; K22.10 Ulcer of esophagus without bleeding
CPT/HCPCS: 99213

== ENCOUNTER → 2023-07-19 12:28 | Outpatient (BNVA) | payer OTHER, SELFPAY | PROVIDERS: PCP Student in an Organized Health Care Education/Training Program; Visit Provider Physician Assistant ==

== ENCOUNTER 2023-11-01 07:00 | Outpatient (RCR) | payer OTHER, SELFPAY | END 2023-12-27 11:00 | disposition home or self-care (01) | LOC: HO.PT 07:00 | PROVIDERS: PCP Student in an Organized Health Care Education/Training Program; Visit Provider Student in an Organized Health Care Education/Training Program | DX: S13.4XXD Sprain of ligaments of cervical spine, subsequent encounter (principal); M43.6 Torticollis | CPT/HCPCS: 97014; 97110; 97140; 97161; 97535 ==

== ENCOUNTER 2024-02-18 09:32 | Outpatient (REF) | payer OTHER, SELFPAY ==
[2024-02-18 10:10] LABS: MANUAL DIFF FLAG NO
[2024-02-18 11:11] LABS: Basophils Absolute Auto 0.1 X10*3/uL (0.0-0.2); Basophils Percent Auto 1.1 % (0-2); Eosinophils Absolute Auto 0.4 X10*3/uL (0.0-0.4); Eosinophils Percent Auto 4.9 % (0-4); Hematocrit 41.2 % (37.0-47.0); Hemoglobin 13.5 g/dl (12.0-16.0); Imm Gran Abs Auto 0.03 X10*3/uL (0.00-0.03); Imm Gran Pct Auto 0.4 % (0.0-0.4); Lymphocytes Absolute Auto 1.6 X10*3/uL (1.2-4.9); Mean Corpuscular HGB Conc 32.8 g/dl (31.0-35.0); Mean Corpuscular Hemoglobin 28.4 pg (27.0-33.0); Mean Corpuscular Volume 86.7 fL (80.0-98.0); Mean Platelet Volume 10.1 fL (9.4-12.3); Monocytes Absolute Auto 0.7 X10*3/uL (0.1-1.2); Monocytes Percent Auto 9.3 % (2-11); Neutrophils Absolute Auto 4.3 x10*3/uL (2.0-8.3); Neutrophils Percent Auto 61.3 % (45-73); Platelet Count 354 X10*3/uL (160-400); Red Blood Count 4.75 X10*6/uL (4.20-5.50); Red Cell Distribution Width 12.6 % (11.0-16.0); White Blood Count 7.1 X10*3/uL (4.8-10.8)
[2024-02-18 11:17] LABS: Estimated Average Glucose 111 mg/dL; Hemoglobin A1C 127.5419 umol/L; Hemoglobin A1c % 5.5 % (<6.0); Total Hemoglobin (HGBA1C) 3517.3121 umol/L
[2024-02-18 11:47] LABS: Alanine Aminotransferase 24 U/L (0-31); Albumin Level 4.1 g/dL (3.5-5.0); Alkaline Phosphatase 115 U/L (39-117); Anion Gap 10 (12-20); Aspartate Amino Transferase 19 U/L (5-31); Bilirubin Total 0.6 mg/dL (0.0-1.0); Blood Urea Nitrogen 10 mg/dL (9-16); Calcium 9.6 mg/dL (8.4-10.2); Carbon Dioxide 28 mmol/L (22-29); Chloride 106 mmol/L (96-108); Cholesterol 180 mg/dL (<200); Estimated Glomerular Filt Rate > 60; Glucose Random 93 mg/dL (60-115); HDL Cholesterol 58 mg/dL (>40); LDL Cholesterol Calculated 110 mg/dL (<100); Potassium 4.7 mmol/L (3.3-5.1); Sodium 139 mmol/L (135-145); Triglycerides 63 mg/dL (<150)
[2024-02-18 12:07] LABS: ~HepC Num1 0.11 S/CO (0.00-0.79); ~Hepatitis C Antibody Nonreactive (Nonreactive)
== END 2024-02-18 09:33 | disposition home or self-care (01) ==
LOC: HO.LAB 09:32
PROVIDERS: PCP Student in an Organized Health Care Education/Training Program; Visit Provider Student in an Organized Health Care Education/Training Program
DX: E11.59 Type 2 diabetes mellitus with other circulatory complications (principal); Z13.228 Encounter for screening for other metabolic disorders
CPT/HCPCS: 36415; 80053; 80061; 83036; 85025; 86803

== ENCOUNTER 2024-03-13 12:17 | Outpatient (AMB) | payer OTHER, SELFPAY ==
--- NOTE | 2024-03-13 13:44 | AM.OFFWIN_ITS ---
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 States she was playing soccer inside with granddaughter yesterday, and accidentally kicked a coffee table quite hard with the top of her foot. She has elevated and iced foot since yesterday, however pain has continued. She is having difficulty walking and has pain with all foot movements. [facility] Medical History Cervical spondylosis Neck pain Sleep disorder Generalized headaches Snoring GERD (gastroesophageal reflux disease) Asthma Breast cancer Depression Carpal tunnel syndrome on both sides Carpal boss of right wrist Carpal boss of left wrist Ovary absent Surgical History Hx of esophagogastroduodenoscopy Hx of colonoscopy History of lumpectomy of left breast Family History Father Cancer Social History Household Members: Spouse and Children Housing: House Alcohol intake: unknown Patient Tobacco Use Status: Never used Tobacco Review of Systems Const All systems reviewed & are unremarkable except as noted in HPI and below Physical Exam Vital Signs: Last Vital Signs Pulse 79 03/13/24 13:45 BP 124/80 03/13/24 13:45 Pulse Ox 96 03/13/24 13:45 Oxygen Delivery Method Room Air 03/13/24 13:45 Const General: cooperative and healthy appearing Resp Effort & Inspection: normal respiratory effort Skin General skin exam: no rashes or lesions noted Extrem Right lower extremity: no joint enlargement and foot Details: normal capillary refill, tenderness Location: of the dorsal foot Location: laterally and of the lateral foot Location: in the mid-section, abnormal ROM of toe Details: pain with active ROM (pain in top/lateral aspect of foot with toe movement) Location: of all toes, no edema and vascular exam Details: dorsalis pedis pulse present, posterior tibial pulse present and normal capillary refill Psych Appearance: grossly normal Mental Status: mental status grossly normal Speech and movement: Normal speech and movement present Assessment & Plan Assessment & Plan (1) Right foot pain: Code(s): M79.671 - Pain in right foot Plan: X-ray does not reveal acute fracture. Soft tissue swelling only. Will await radiology read/report. At this time, I have fit patient with walking boot and discussed advised activity restrictions. She should also ice and elevate foot to help with pain/swelling. I will start her on a course of Meloxicam. We reviewed indications, use, possible side effects of this medication. She can also take Tylenol as needed. She was aware she will be notified of radiology report once this is available. If she does not improve with time and conservative measures/activity restrictions on that right foot, she should return to the clinic for further evaluation. She verbalizes understanding and agrees to plan. (2) Right foot injury: Code(s): S99.921A - Unspecified injury of right foot, initial encounter Qualifiers: Encounter type: initial encounter Qualified Code(s): S99.921A - Unspecified injury of right foot, initial encounter Plan: As above Orders: Orders XR foot RT 2V 03/13/24 M79.671 - Pain in right foot Medications: New meloxicam Take one tablet a day with food for 7 days. 15 mg PO DAILY 7 tabs 0RF 7 days M79.671 - Pain in right foot Coding Level of Care Code Est Pt Level 4 (68176) Diagnoses Right foot pain M79.671 Injury of right foot, initial encounter S99.921A Encounter type: initial encounter
[2024-03-13 13:45] VITALS: BP 124/80; PULSE 79; O2SAT 96
== END 2024-03-13 14:42 | disposition home or self-care (01) ==
PROVIDERS: PCP Student in an Organized Health Care Education/Training Program; Visit Provider Nurse Practitioner Family
DX: M79.671 Pain in right foot (principal); S99.921A Unspecified injury of right foot, initial encounter

== ENCOUNTER 2024-03-13 12:17 | Outpatient (REF) | payer OTHER, SELFPAY ==
--- NOTE | ~2024-03-13 | XR_ITS ---
EXAMINATION: XR FOOT, RIGHT CLINICAL INFORMATION: M79.671 - Pain in right foot COMPARISON: None available. TECHNIQUE: AP, lateral, and oblique views of the right foot. FINDINGS: No acute fracture or malalignment. Minimal heel spur. 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 XR/XR foot RT 2V IMPRESSION: No acute fracture. Mild degenerative changes as described. Electronically signed by: Freddy Graham MD 03/13/2024 05:07 PM RAÚL BAHENA
== END 2024-03-13 12:18 | disposition home or self-care (01) ==
LOC: HO.HMGCX 12:17
PROVIDERS: PCP Student in an Organized Health Care Education/Training Program; Visit Provider Nurse Practitioner Family
DX: M79.671 Pain in right foot (principal)
CPT/HCPCS: 73620